=== PATIENT | male | born 1960 | race African-American/Black ===

== ENCOUNTER 2017-07-15 18:12 | Observation (INO) ==
[2017-07-15] MEDS ORDERED: ONDANSETRON 4 MG/2 ML VIAL IV STA (18:53)
[2017-07-15] MEDS ORDERED: HYDROmorphone 2 MG/1 ML VIAL IV STA (18:53)
[2017-07-15] MEDS ORDERED: DIPH/TET/ACEL PERT BOOSTER VACCINE 0.5 ML VIAL IM ONE ×2 (18:54→19:03)
--- NOTE | 2017-07-15 18:57 | Emergency Department Note ---
Arrival - Arrival Chief Complaint: Extremity Injury Stated Complaint: toe cut ED Nursing Triage Note: TRANSFERRED POV FROM [facility] TO AMPUTATION OF L GREAT TOE, CUT WITH LAWMOWER BLADE, FOOT WRAPPED IN BULKY DRESSING FROM [facility] Mode of Arrival: Wheelchair Limitations: No Limitations Source: Patient Time Seen by Provider: 07/15/17 18:51 - History of Present Illness HPI Narrative: This 57-year-old black male caught the toe of his work boot in a lawnmower with injury to the left great toe. It was originally seen at [facility] where he was evaluated and found to have both proximal and distal phalanx fractures with considerable trauma to the volar surface of the right great toe peeling off the nail and nailbed. Currently he is in considerable discomfort but no acute medical distress. Onset (ago): hour(s) (Patient presents 2 hours post onset of symptoms) Allergies/Adverse Reactions: Allergies Allergy/AdvReac Type Severity Reaction Status Date / Time ibuprofen [From Advil] Allergy ANAPHYLAXIS Verified 07/15/17 18:20 Penicillins Allergy ANAPHYLAXIS Verified 07/15/17 18:20 Review of System - Review of System 12 point system: reviewed and no additional remarkable complaints except as stated - Review of System Constitutional: Present: as per HPI Musculoskeletal: Present: as per HPI Medical,Surgical,& Family Hx - Social History Smoking Status: Smoker, status unknown Exam Physical Examination: GENERAL: Well developed, well nourished anxious black male in no acute distress. HEENT: Normocephalic. No trauma. Moist mucous membranes. EOMI. PERRLA. ENT NML NECK: Supple. No adenopathy. CARDIAC: Regular. No murmurs. Heart rate 71 CHEST: Clear to auscultation. No respiratory distress. O2 sat 100% ABDOMEN: Soft. Nontender. Active bowel sounds. EXTREMITIES: No trauma. Normal ROM. No pedal edema. Left great toe reveals the volar surface removed including the nail with exposed bone SKIN: No diaphoresis. No rash. Toe injury as above NEURO: Alert. Neuro intact no focal deficits. Vital Signs: Vital Signs Temperature 98.5 F 07/15/17 18:32 Pulse Rate 71 07/15/17 18:32 Respiratory Rate 18 07/15/17 18:32 Blood Pressure 139/112 07/15/17 18:32 O2 Sat by Pulse Oximetry 100 07/15/17 18:16 Course - Reevaluation(s) Reevaluation #1: Discussed with patient the need for hospitalization for surgical intervention. - Consultations Consultation #1: Discussed with Dr. Velasquez who will admit for further evaluation and surgical treatment. Results - Labs CBC & BMP: 07/15/17 18:47 Labs: I have noted the normal white cell count and hematocrit as well as clotting studies. - Diagnostic Findings Procedure: X-ray: image reviewed by me, report reviewed by me (Read with radiologist, left foot film reveals shattered distal phalanx with longitudinal fracture of the proximal phalanx along with considerable soft tissue damage) Disposition Clinical Impression: Left great toe injury, Complex laceration left great toe, Complex left great toe fractures Condition: Stable Time of Disposition: 19:30
[2017-07-15 18:59] LABS: Basophils # 0.1 10*3/uL (0.0-0.2); Eosinophils # 0.2 10*3/uL (0.0-0.87); Eosinophils % 1.6 % (0.00-10.9); Hematocrit 43.8 VOL% (42.0-52.0); Hemoglobin 14.7 GM/DL (14.0-18.0); Immature Granulocytes % 0.5 %; Immature Granulocytes Absolute 0.05 #; Lymphocytes # 3.3 10*3/uL (1.4-4.0); Lymphocytes % 34.8 % (21.2-54.2); Mean Corpuscular HGB Conc 33.6 GM/DL (32-36); Mean Corpuscular Hemoglobin 28 PG (27-34); Mean Corpuscular Volume 83.9 FL (87-102); Mean Platelet Volume 10.1 FL (9.6-12.0); Monocytes # 0.5 10*3/uL (0.11-0.8); Monocytes % 5.3 % (1.7-12.7); Neutrophils # 5.3 10*3/uL (1.4-7.4); Neutrophils % 56.8 % (38.7-73.9); Platelet Count 239 T/CUMM (130-400); Red Blood Count 5.22 MC/CUMM (3.8-5.5); Red Cell Distribution Width 14.2 % (9.3-17.3); White Blood Count 9.4 T/CUMM (4-12)
[2017-07-15] MEDS ORDERED: ONDANSETRON 4 MG/2 ML VIAL ONE (19:03)
[2017-07-15] MEDS ORDERED: HYDROmorphone 2 MG/1 ML VIAL ONE (19:03)
[2017-07-15 19:30] LABS: Calcium 8.9 MG/DL (8.5-10.1); Potassium 3.7 MMOL/L (3.5-5.1)
[2017-07-15] MEDS ORDERED: HYDROmorphone 2 MG/1 ML VIAL IV PRN (19:32)
[2017-07-15] MEDS ORDERED: ONDANSETRON 4 MG/2 ML VIAL IV PRN (19:32)
[2017-07-15] MEDS ORDERED: CLINDAMYCIN INJ 900 MG in PREMIX 1 EACH IV STA (19:35)
[2017-07-15] MEDS ORDERED: CLINDAMYCIN INJ 50 ML IV ONE (19:40)
[2017-07-15] MEDS: LACTATED RINGERS 1,000 ML IV SCH (20:57)
[2017-07-16] MEDS: LACTATED RINGERS 1,000 ML IV SCH ×3 (06:51→17:25)
[2017-07-16] MEDS ORDERED: FAMOTIDINE 20 MG TABLET PO ONE (07:04)
--- NOTE | 2017-07-16 07:15 | Orthopedic History & Physical ---
History of Present Illness Chief complaint: Left great toe amputation History of present illness: Mr. Alarcon is a 57 year old male See dictated report Allergies Allergy/AdvReac Type Severity Reaction Status Date / Time ibuprofen [From Advil] Allergy ANAPHYLAXIS Verified 07/15/17 18:20 Penicillins Allergy ANAPHYLAXIS Verified 07/15/17 18:20 Medical,Surgical,& Family Hx - Medical History Psychological: History of: Depression HEENT: History of: Eye Problem (WEARS GLASSES , STATES HIS VISION IS BLURRED AT TIMES) - Surgical History Cardiac Surgeries: Patient Denies: Cardiac Catheterization Thoracic Surgeries: Patient denies;: Organ Transplant, Lobectomy Neurologic Surgeries: Patient denies: Neurologic Surgery HEENT Surgeries: Patient denies: Eye Surgery, Tonsilectomy & Adenoidectomy - Family History Family History: Reports;: Family Cancer (MOTHER AND FATHER), Family Heart Disease (SISTER), Family Hypertension (SISTER) - Social History Smoking Status: Smoker, status unknown Frequency of Alcohol Use: Occasionally Type of Drug Use: None Exam - Constitutional Vitals: Period Temp Pulse Resp BP Sys/Brown Pulse Ox Last 24 Hr 97.1 F-98.5 F 52-71 14-18 111-139/71-112 92-100 Results - Labs CBC & BMP: 07/15/17 18:47 07/15/17 18:47
[2017-07-16] MEDS: CLINDAMYCIN INJ 900 MG in PREMIX 1 EACH IV SCH ×2 (09:23→15:47)
[2017-07-16] MEDS ORDERED: BUPIVACAINE 0.25% 50 ML VIAL ONE (11:00)
--- NOTE | 2017-07-16 11:56 | Anesthesia Post-Op ---
Anesthesia Post OP - Post Ansesthetic Evaluation Patient seen in post op: Yes Resp: within normal limits CV: within normal limits Mental: within normal limits Temp: within normal limits Kmeq-Ag-Nzhdgvunc: within normal limits Nausea and Vomiting: within normal limits Pain: within normal limits
[2017-07-16] MEDS ORDERED: SEVOFLURANE 1 UNIT/15 MINUTE INH ONE (11:59)
[2017-07-16] MEDS ORDERED: MIDAZOLAM 2 MG/2 ML VIAL ONE (11:59)
[2017-07-16] MEDS ORDERED: PROPOFOL 200 MG/20 ML VIAL IV ONE (11:59)
[2017-07-16] MEDS ORDERED: MAGNESIUM HYDROXIDE SUSP 30 ML UDCUP PO PRN (11:59)
[2017-07-16] MEDS ORDERED: fentaNYL 100 MCG/2 ML VIAL ONE (11:59)
[2017-07-16] MEDS ORDERED: PROMETHAZINE 25 MG/1 ML VIAL IM PRN (11:59)
[2017-07-16] MEDS ORDERED: ONDANSETRON 4 MG/2 ML VIAL ONE (12:25)
[2017-07-16] MEDS: HYDROmorphone 2 MG/1 ML VIAL IV PRN ×2 (12:25→12:34)
--- NOTE | 2017-07-16 13:57 | History and Physical Report ---
DATE OF ADMISSION: 07/15/2017 A 57-year-old black male, injured his left foot when he was placing underneath a filter tank tender helper head that was running. He amputated the tip of the great toe. He was brought to [facility] for eric luation and definitive treatments. No other injuries reported. PAST MEDICAL HISTORY: None MEDICATIONS: None. ALLERGIES: PENICILLIN AND IBUPROFEN. PHYSICAL EXAMINATION GENERAL: Thin black male. He is awake, alert, responds to questions appropriately. HEENT: Within normal limits. CHEST: Clear. HEART: Regular rate and rhythm. ABDOMEN: Soft and nontender. AND RECTAL: Deferred. EXTREMITY: He has no pain or deformity by either upper extremity or about the right lower, on the le ft side, a traumatic injury is noted about the great toe. Lesser toes are not involved. The nail oden s gone, the laceration essentially declawed the distal nail and phalanx. There is minimal gross cont amination. Radiographs confirmed a comminuted fracture involving the proximal phalanx. The distal phalanx of th e great toe is essentially not present other than comminuted fragments. IMPRESSION: TRAUMATIC AMPUTATION, LEFT GREAT TOE. PLAN: I have discussed with him the diagnosis, treatment recommendation including the need for washout of t he open injury and formalize the amputation. He will be may shorter and the distal phalanx is essent ially gone. I have discussed with him the operative plan. All of his questions were answered. He e xpressed understanding and agrees to proceed.
--- NOTE | 2017-07-16 18:53 | Operative Note ---
PREOPERATIVE DIAGNOSIS: TRAUMATIC AMPUTATION, LEFT GREAT TOE. POSTOPERATIVE DIAGNOSIS: SAME. OPERATIVE PROCEDURE: Irrigation and debridement of open injury, left great toe with formalization of amputation. SURGEON: Jackson Velasquez Jr., MD ANESTHESIA: General. INDICATIONS: A 57-year-old black male, injured yesterday evening while mowing grass. He put his lef t foot under the mower, slashing of the tip of the great toe. I have discussed him preoperatively th e need to formalize the amputation, noting that he will be markedly sorer since there is a lot of bon e loss related to the traumatic injury. OPERATIVE PROCEDURE: The patient was taken to the operating room and under general anesthetic, posit ioned supine position. The left lower extremity positioned, prepped and draped in a usual sterile ma nner. He received clindamycin preoperatively. The tourniquet was inflated after elevation of 300 mm Hg. The injury itself included a complete avulsion of the entire nail and nail bed with also amputat ion to the distal phalanx. The proximal phalanx was fractured and comminuted in the mid distal porti on. There was some viable volar skin, which could be used to create a flap. An incision was made ju st proximal to the nail bed germinal matrix and then extending out distally to create the flap. This was all irrigated after excision of the injured tissue, irrigated with bulb syringe normal saline an d then the more distal aspect of the proximal phalanx was removed with a bone cutter. This allowed t o bring the flaps over the top and they were sutured with 2-0 Vicryl interrupted. Sterile dressings were applied. Tourniquet was inflated at 15 minutes, he was taken to recovery room in stable conditi on.
[2017-07-17] MEDS: CLINDAMYCIN INJ 900 MG in PREMIX 1 EACH IV SCH ×2 (00:08→08:40)
[2017-07-17] MEDS: LACTATED RINGERS 1,000 ML IV SCH (00:38)
[2017-07-17 07:51] VITALS: BP 120/82
--- NOTE | 2017-07-17 08:32 | Orthopedic Progress Note ---
Orthopedics - Subjective Interval history: Comfortable mobilizing about room discussed mobility possibly he will walk will discharge later today Exam - Constitutional Vitals: Period Temp Pulse Resp BP Sys/Brown Pulse Ox Last 24 Hr 97.0 F-98.4 F 53-70 16-18 117-167/74-106 91-100 Results - Labs CBC & BMP: 07/15/17 18:47 07/15/17 18:47
--- NOTE | 2017-07-17 08:34 | Discharge Summary ---
Hospital Course - Hospital Course Hospital Course: Admitted after lawnmower injury left great toe discharged home Diagnosis - Discharge Diagnosis (1) Lawnmower injury left great toe Status: Acute Discharge Plan - Discharge Data Disposition: Disch To Home/Self Care Condition at Discharge: Stable Discharge Diet: advance to your usual diet Activity: increase activity as tolerated Hygiene: may shower, keep area(s) dry Weight Bearing at Discharge: weight bear as tolerated (Must heel walk. no weightbearing on forefoot) - Discharge Medications New HYDROcodone/ACETAMIN 7.5-325 [[place] 7.5-325] 2 tablet PO Q4H PRN #20 tablet PRN Reason: Pain Severe (8-10) - Follow Up or Referral - Forms/Instructions Additional Discharge Instructions: Discharge home discharge medication Narco for pain Keflex 5 days. March he will walk follow-up with me Sunday a.m. for dressing change Exam - Constitutional Vitals: Period Temp Pulse Resp BP Sys/Brown Pulse Ox Last 24 Hr 97.0 F-98.4 F 53-70 16-18 117-167/74-106 91-100 DS: Provider Date of admission: 07/15/17 19:31 Primary care physician: . No PCP Attending physician on admission: Jackson Velasquez Jr., MD Consults: 07/16/17 11:59 Consult to Physical Therapy [CONS] Routine Reason for Physical Therapy: Evaluate and Treat Consult Comment: Crutch training heel walk on left Discharging clinician: Jackson Velasquez Jr., MD
--- NOTE | 2017-07-17 11:22 | Pathology Report from [facility] ---
[facility] ACCESSION # : [id number] PATIENT NAME : Shirley Bajwa ORDERING DR : VINAY HARRIS JR, MD CLINICAL HX: LT great toe amputation POST-OP DX: Same SPECIMEN INFO: LT great toe, bone & tissue GROSS DESCRIPTION: Received in formalin labeled SHIRLEY BAJWA consists of an aggregate of skin, soft tissue and bone measuring 4.5 x 3.0 x 2.0 cm in aggregate. Asic Verification Engineer sections are submitted in one cassette. DIAGNOSIS FOR SHIRLEY BAJWA: LEFT GREAT TOE, BONE & TISSUE, AMPUTATION: Ulceration, acute and chronic inflammation, granulation, fibrosis. COLLECTED DATE: 07/16/2017 [facility] REPORT DATE: 07/17/2017 ELECTRONICALLY SIGNED BY: Licha Gold M.D. 07/17/2017 - 10:12:03 [facility]ITAL[facility]
== END 2017-07-17 11:05 | disposition home or self-care (01) ==
LOC: N.ED 18:12 → INTOOBSV 19:31 → N.EDINP 19:41 → N.3E 19:53
PROVIDERS: ADMIT Orthopaedic Surgery; ATTEND Orthopaedic Surgery